=== PATIENT | male | born 1960 | race Caucasian/White ===

== ENCOUNTER 2018-01-30 18:59 | Inpatient (IN) | payer MEDICAID ==
[~2018-01-30] VITALS: Ht 167.6 cm; Wt 57.6 kg
[2018-01-30 19:05] VITALS: BP 87/46
[2018-01-30] MEDS ORDERED: INSULIN REGULAR, HUMAN 100 UNIT/ML VIAL IVP ONE (19:20)
[2018-01-30] MEDS ORDERED: NACL 0.9% 2,000 ML IV ONE (19:20)
[2018-01-30] MEDS ORDERED: ONDANSETRON 4 MG/2 ML VIAL IVP ONE (19:50)
[2018-01-30] MEDS ORDERED: ONDANSETRON 4 MG/2 ML VIAL ONE (19:55)
[2018-01-30] MEDS ORDERED: NACL 0.9% 1,000 ML IV ONE ×2 (20:00→21:46)
[2018-01-30] MEDS ORDERED: POTASSIUM CHL 20 MEQ/NACL 0.9% 1,000 ML IV ONE (20:05)
[2018-01-30 20:15] LABS: BARBITURATE, URINE NEG. ng/ml (NEG <=200); BENZODIAZEPINE, URINE NEG. ng/mL (NEG <=200); CANNABINOID, URINE NEG. ng/mL (NEG <=50); COCAINE, URINE NEG. ng/mL (NEG <=300); OPIATE, URINE NEG. ng/mL (NEG <=2000); PHENCYCLIDINE SCREEN,URINE NEG. ng/mL (NEG <=25)
[2018-01-30 20:17] LABS: APPEARANCE,URINE SL CLOUDY (CLEAR); BILIRUBIN,URINE 1+ (NEGATIVE); BLOOD, URINE 3+ (NEGATIVE); COLOR,URINE YELLOW (YELLOW); LEUKOCYTE ESTERASE ,URINE NEGATIVE (NEGATIVE); NITRITE, URINE NEGATIVE (NEGATIVE); PH,URINE 5.5 (5.0-9.0); UGLUCOSE 3+ (NEGATIVE)
[2018-01-30 20:22] LABS: RBC,URINE 3-10 (FEW) /HPF (0-5); WBC,URINE NONE SEEN /HPF (0-5)
[2018-01-30 20:25] LABS: BASOPHILS % (AUTO) 0.1 % (0.0-2.0); HEMATOCRIT 51.1 % (36-52); HEMOGLOBIN 15.4 g/dL (12.0-18.0); LYMPHOCYTES # (AUTO) 1.1 K/uL (2.0-11.5); LYMPHOCYTES % (AUTO) 11.4 % (20.5-51.1); MEAN CORPUSCULAR HEMOGLOBIN 30 pg (27-31); MEAN CORPUSCULAR HGB CONC 30 g/dL (33-37); MEAN CORPUSCULAR VOLUME 100.1 fL (80-94); MONOCYTES # (AUTO) 0.1 K/uL (0.8-1.0); MONOCYTES % (AUTO) 1.1 % (1.7-9.3); NEUTROPHILS # (AUTO) 8.2 K/uL (1.8-7.7); NEUTROPHILS % (AUTO) 87.4 % (42.2-75.2); PLATELET COUNT (AUTO) 165 K/uL (140-450); RED CELL DISTRIBUTION WIDTH 15.1 % (11.6-13.7); WHITE BLOOD COUNT (AUTO) 9.3 K/uL (4.8-10.8)
[2018-01-30] MEDS ORDERED: SODIUM BICARBONATE 8.4% PFS 50 MEQ/50 ML SYR IVP ONE (20:25)
[2018-01-30 20:59] LABS: POTASSIUM 3.7 mmol/L (3.5-5.1)
[2018-01-30 21:00] LABS: ACETAMINOPHEN 3.4 ug/ml (10-30); ALBUMIN 2.7 g/dL (3.4-5.0); ASPARTATE AMINOTRANSFERASE 14 U/L (15-37); CHLORIDE 116 mmol/L (98-107); GFR ARICAN-AMERICAN 28 mL/min (>90); SALICYLATE 4.9 mg/dL (2.8-20.0); SODIUM SERUM 167 mmol/L (136-145); TOTAL BILIRUBIN 0.5 mg/dL (0.0-1.0)
[2018-01-30] MEDS ORDERED: POTASSIUM CHLORIDE 20% 40 MEQ/15 ML UDC PO ONE (21:00)
[2018-01-30 21:04] LABS: ANION GAP 45.9 (8-16); CARBON DIOXIDE 8.8 mmol/L (21-32); UREA NITROGEN, BLOOD 76 mg/dL (7-18)
[2018-01-30 21:06] LABS: PROTHROMBIN TIME 10.8 secs (10.8-13.4)
[2018-01-30] MEDS ORDERED: DOCUSATE SODIUM 100 MG GELCAP PO PRN (21:30)
[2018-01-30] MEDS ORDERED: HYDROcodone/APAP 7.5/325 MG 1 TAB PO PRN (21:30)
[2018-01-30] MEDS ORDERED: ACETAMINOPHEN 325 MG TAB PO PRN (21:30)
[2018-01-30] MEDS ORDERED: ONDANSETRON 4 MG/2 ML VIAL IM/IVP PRN (21:30)
[2018-01-30] MEDS ORDERED: DEXT 5% / NACL 0.45% 1,000 ML IV SCH (21:46)
[2018-01-30] MEDS ORDERED: INSULIN REGULAR, HUMAN 100 UNIT in NACL 0.9% 100 ML IV SCH ×2 (21:50)
[2018-01-30] MEDS ORDERED: DEXTROSE 50% 50 ML SYR IVP PRN (21:50)
[2018-01-30] MEDS ORDERED: INSULIN REGULAR, HUMAN 100 UNIT/ML VIAL IVP SCH (22:00)
[2018-01-30] MEDS: BLOOD GLUCOSE MONITORING 1 DEV DEV FS SCH ×2 (22:00→23:21)
[2018-01-30 22:09] LABS: CHOL/HDL RATIO 4.5 (1-4.5); FREE T4 (FREE THYROXINE) 0.85 ng/dL (0.76-1.46); MAGNESIUM 3.3 mg/dL (1.8-2.4); THYROID STIMULATING HORMONE 3.91 uIU/mL (0.34-3.74)
[2018-01-30] MEDS: NACL 0.45% 1,000 ML IV SCH (22:15)
[2018-01-30] MEDS ORDERED: LORazepam 2 MG/ML VIAL IVP SCH (22:30)
[2018-01-30] MEDS ORDERED: HYDROmorphone 1 MG/ML AMP IVP SCH (22:30)
[2018-01-30] MEDS: NACL 0.9% 1,000 ML IV SCH (22:39)
[2018-01-30] MEDS ORDERED: cefTRIAXone 1,000 MG VIAL ONE (22:42)
[2018-01-30] MEDS ORDERED: PNEUMOCOCCAL VACCINE 23 MCG/0.5 ML VIAL IMVAC SCH (23:35)
[2018-01-31] VITALS (12 sets, daily range): BP systolic 93–146; BP diastolic 57–87
[2018-01-31] MEDS ORDERED: KCL 20 MEQ/WATER INJ PREMIX 100 ML IV ONE
[2018-01-31] MEDS: BLOOD GLUCOSE MONITORING 1 DEV DEV FS SCH ×17 (01:01→20:00)
[2018-01-31] MEDS ORDERED: MECLIZINE 25 MG TAB PO PRN (01:05)
[2018-01-31 01:16] LABS: MAGNESIUM 2.6 mg/dL (1.8-2.4); PHOSPHORUS 2.3 mg/dL (2.5-4.9)
[2018-01-31 01:32] LABS: ANION GAP 25.3 (8-16); CARBON DIOXIDE 19.5 mmol/L (21-32); CREATININE 2.3 mg/dL (0.7-1.3)
[2018-01-31 01:57] LABS: POTASSIUM 2.8 mmol/L (3.5-5.1)
[2018-01-31] MEDS: NACL 0.9% 1,000 ML IV SCH (02:00)
[2018-01-31] MEDS ORDERED: ALBUTEROL SULFATE/IPRATROPIU 3 ML SOL IH PRN (02:30)
[2018-01-31] MEDS: NACL 0.45% 1,000 ML IV SCH (03:15)
[2018-01-31 04:38] LABS: ANION GAP 12.3 (8-16); CARBON DIOXIDE 27.6 mmol/L (21-32); CREATININE 2.1 mg/dL (0.7-1.3); MAGNESIUM 2.4 mg/dL (1.8-2.4); PHOSPHORUS 2.1 mg/dL (2.5-4.9); POTASSIUM 3.9 mmol/L (3.5-5.1)
[2018-01-31] MEDS ORDERED: PIPERACILLIN/TAZOBACTAM 2.25 GM VIAL IV ONE (05:24)
[2018-01-31] MEDS: PIPER/TAZO 2.25GM/D5W PREMIX 50 ML IV SCH ×3 (05:26→21:44)
[2018-01-31 05:36] LABS: BASOPHILS % (AUTO) 0.1 % (0.0-2.0); EOSINOPHILS % (AUTO) 0.1 % (0.0-4.0); HEMATOCRIT 46.9 % (36-52); HEMOGLOBIN 15.3 g/dL (12.0-18.0); LYMPHOCYTES # (AUTO) 0.7 K/uL (2.0-11.5); LYMPHOCYTES % (AUTO) 8.1 % (20.5-51.1); MEAN CORPUSCULAR HEMOGLOBIN 30 pg (27-31); MEAN CORPUSCULAR HGB CONC 33 g/dL (33-37); MEAN CORPUSCULAR VOLUME 92.7 fL (80-94); MONOCYTES # (AUTO) 0.3 K/uL (0.8-1.0); MONOCYTES % (AUTO) 3.4 % (1.7-9.3); NEUTROPHILS % (AUTO) 88.3 % (42.2-75.2); PLATELET COUNT (AUTO) 150 K/uL (140-450); RED BLOOD CELL COUNT(AUTO) 5.06 MIL/uL (4.20-6.10); RED CELL DISTRIBUTION WIDTH 13.5 % (11.6-13.7)
[2018-01-31] MEDS ORDERED: DEXTROSE 5% 1,000 ML IV SCH (06:55)
[2018-01-31] MEDS: ALBUTEROL SULFATE/IPRATROPIU 3 ML SOL IH SCH ×3 (07:03→19:36)
[2018-01-31] MEDS ORDERED: HYDROcodone/APAP 7.5/325 MG 1 TAB PO PRN (07:10)
[2018-01-31 09:32] LABS: POTASSIUM 3.9 mmol/L (3.5-5.1)
[2018-01-31 09:35] LABS: ANION GAP 12.9 (8-16)
[2018-01-31 10:02] LABS: MAGNESIUM 2.3 mg/dL (1.8-2.4); PHOSPHORUS 2.3 mg/dL (2.5-4.9)
[2018-01-31 12:58] LABS: ANION GAP 11.3 (8-16); CARBON DIOXIDE 29.7 mmol/L (21-32); CREATININE 2.2 mg/dL (0.7-1.3)
[2018-01-31] MEDS ORDERED: POTASSIUM CHLORIDE 20% 40 MEQ/15 ML UDC GT SCH (13:15)
[2018-01-31 13:19] LABS: MAGNESIUM 2.3 mg/dL (1.8-2.4)
[2018-01-31] MEDS: SODIUM PHOS / POTASSIUM PHOS 1 PKT PDR PO SCH (14:03)
[2018-01-31] MEDS: DEXT 5% / NACL 0.45% 1,000 ML IV SCH (14:08)
[2018-01-31 15:11] LABS: ANION GAP 10.3 (8-16); CARBON DIOXIDE 29.6 mmol/L (21-32); CREATININE 2.2 mg/dL (0.7-1.3); POTASSIUM 3.9 mmol/L (3.5-5.1)
[2018-01-31 16:13] LABS: MAGNESIUM 2.3 mg/dL (1.8-2.4); PHOSPHORUS 2.4 mg/dL (2.5-4.9)
[2018-01-31] MEDS ORDERED: INSULIN LANTUS 100 UNITS/ML 10 ML VIAL SUBQ SCH (16:18)
[2018-01-31 18:09] LABS: ANION GAP 11.4 (8-16); CARBON DIOXIDE 27.6 mmol/L (21-32); CREATININE 2.2 mg/dL (0.7-1.3)
[2018-01-31] MEDS ORDERED: DEXTROSE 50% 50 ML SYR IVP PRN (20:40)
[2018-01-31] MEDS: INSULIN LISPRO SLIDING SCALE 100 UNITS/ML VIAL SUBQ PRN (21:30)
[2018-01-31] MEDS: ATORVASTATIN 20 MG TAB PO SCH (21:45)
[2018-02-01] VITALS (13 sets, daily range): BP systolic 87–143; BP diastolic 49–81
[2018-02-01] MEDS: BLOOD GLUCOSE MONITORING 1 DEV DEV FS SCH ×6 (00:38→20:00)
[2018-02-01 00:39] LABS: ANION GAP 11.2 (8-16); CARBON DIOXIDE 27.9 mmol/L (21-32); POTASSIUM 3.1 mmol/L (3.5-5.1)
[2018-02-01] MEDS: DEXT 5% / NACL 0.45% 1,000 ML IV SCH (01:00)
[2018-02-01] MEDS ORDERED: KCL 20 MEQ/WATER INJ PREMIX 200 ML IV ONE (01:15)
[2018-02-01] MEDS: ALBUTEROL SULFATE/IPRATROPIU 3 ML SOL IH SCH ×4 (01:39→19:19)
[2018-02-01] MEDS ORDERED: LORazepam 2 MG/ML VIAL IM/IVP ONE (03:00)
[2018-02-01] MEDS: PIPER/TAZO 2.25GM/D5W PREMIX 50 ML IV SCH ×3 (04:58→20:57)
[2018-02-01 06:20] LABS: BASOPHILS % (AUTO) 0.1 % (0.0-2.0); EOSINOPHILS % (AUTO) 0.2 % (0.0-4.0); HEMATOCRIT 41.2 % (36-52); HEMOGLOBIN 13.4 g/dL (12.0-18.0); LYMPHOCYTES # (AUTO) 0.8 K/uL (2.0-11.5); LYMPHOCYTES % (AUTO) 8.8 % (20.5-51.1); MEAN CORPUSCULAR HEMOGLOBIN 30 pg (27-31); MEAN CORPUSCULAR HGB CONC 33 g/dL (33-37); MEAN CORPUSCULAR VOLUME 92.8 fL (80-94); MONOCYTES # (AUTO) 0.2 K/uL (0.8-1.0); MONOCYTES % (AUTO) 1.8 % (1.7-9.3); NEUTROPHILS # (AUTO) 8.4 K/uL (1.8-7.7); NEUTROPHILS % (AUTO) 89.1 % (42.2-75.2); RED BLOOD CELL COUNT(AUTO) 4.43 MIL/uL (4.20-6.10); RED CELL DISTRIBUTION WIDTH 13.6 % (11.6-13.7); WHITE BLOOD COUNT (AUTO) 9.4 K/uL (4.8-10.8)
[2018-02-01 07:08] LABS: PHOSPHORUS 2.6 mg/dL (2.5-4.9)
[2018-02-01 07:50] LABS: PLATELET COUNT (AUTO) 85 K/uL (140-450)
[2018-02-01] MEDS ORDERED: metFORMIN 500 MG TAB PO SCH (08:00)
[2018-02-01] MEDS: INSULIN LISPRO SLIDING SCALE 100 UNITS/ML VIAL SUBQ PRN ×2 (08:12→12:03)
[2018-02-01 08:18] LABS: T3 UPTAKE 26 % (24-39); T4 (THYROXINE) 4.3 ug/dL (4.5-12.0)
[2018-02-01 09:19] LABS: ANION GAP 13.4 (8-16); CARBON DIOXIDE 27.3 mmol/L (21-32); CREATININE 1.8 mg/dL (0.7-1.3); POTASSIUM 3.7 mmol/L (3.5-5.1)
[2018-02-01] MEDS: SODIUM PHOS / POTASSIUM PHOS 1 PKT PDR PO SCH ×3 (09:21→17:13)
[2018-02-01] MEDS: INSULIN LANTUS 100 UNITS/ML 10 ML VIAL SUBQ SCH (09:22)
[2018-02-01] MEDS: DEXTROSE 5% 1,000 ML IV SCH (10:03)
[2018-02-01] MEDS ORDERED: LORazepam 2 MG/ML VIAL IM/IVP PRN (11:25)
[2018-02-01 12:41] LABS: CARBON DIOXIDE 28.2 mmol/L (21-32); POTASSIUM 3.1 mmol/L (3.5-5.1)
[2018-02-01 12:42] LABS: CREATININE 1.7 mg/dL (0.7-1.3)
[2018-02-01 12:43] LABS: ANION GAP 11.9 (8-16)
[2018-02-01] MEDS ORDERED: KCL 20 MEQ/WATER INJ PREMIX 200 ML IV SCH (14:00)
[2018-02-01 17:05] LABS: ANION GAP 15.2 (8-16); CARBON DIOXIDE 25.8 mmol/L (21-32); CREATININE 1.4 mg/dL (0.7-1.3)
[2018-02-01 18:51] LABS: ANION GAP 11.5 (8-16); CARBON DIOXIDE 28.7 mmol/L (21-32); CREATININE 1.3 mg/dL (0.7-1.3); POTASSIUM 3.2 mmol/L (3.5-5.1)
[2018-02-01] MEDS ORDERED: guaiFENesin DM 200/20 MG-10 ML 10 ML UDC PO PRN (20:35)
[2018-02-01] MEDS ORDERED: BENZOCAINE/MENTHOL 1 LOZ MM PRN (20:35)
[2018-02-01] MEDS: ATORVASTATIN 20 MG TAB PO SCH (20:58)
[2018-02-02] VITALS (7 sets, daily range): BP systolic 86–95; BP diastolic 44–61
[2018-02-02] MEDS: BLOOD GLUCOSE MONITORING 1 DEV DEV FS SCH ×6 (00:21→20:41)
[2018-02-02] MEDS: INSULIN LISPRO SLIDING SCALE 100 UNITS/ML VIAL SUBQ PRN ×5 (00:23→20:47)
[2018-02-02] MEDS: ALBUTEROL SULFATE/IPRATROPIU 3 ML SOL IH SCH ×4 (01:34→19:34)
[2018-02-02] MEDS: DEXTROSE 5% 1,000 ML IV SCH ×2 (05:17→20:41)
[2018-02-02] MEDS: PIPER/TAZO 2.25GM/D5W PREMIX 50 ML IV SCH ×3 (05:18→20:43)
[2018-02-02 07:16] LABS: BASOPHILS % (AUTO) 0.2 % (0.0-2.0); EOSINOPHILS # (AUTO) 0.1 K/uL (0-0.4); HEMOGLOBIN 12.7 g/dL (12.0-18.0); LYMPHOCYTES # (AUTO) 1.3 K/uL (2.0-11.5); LYMPHOCYTES % (AUTO) 13.7 % (20.5-51.1); MEAN CORPUSCULAR HEMOGLOBIN 31 pg (27-31); MEAN CORPUSCULAR HGB CONC 34 g/dL (33-37); MEAN CORPUSCULAR VOLUME 91.6 fL (80-94); MONOCYTES # (AUTO) 0.1 K/uL (0.8-1.0); MONOCYTES % (AUTO) 1.6 % (1.7-9.3); NEUTROPHILS # (AUTO) 7.8 K/uL (1.8-7.7); NEUTROPHILS % (AUTO) 83.5 % (42.2-75.2); PLATELET COUNT (AUTO) 66 K/uL (140-450); RED BLOOD CELL COUNT(AUTO) 4.15 MIL/uL (4.20-6.10); RED CELL DISTRIBUTION WIDTH 13.4 % (11.6-13.7); WHITE BLOOD COUNT (AUTO) 9.3 K/uL (4.8-10.8)
[2018-02-02] MEDS ORDERED: KCL 20 MEQ/WATER INJ PREMIX 200 ML IV SCH (08:00)
[2018-02-02] MEDS: SODIUM PHOS / POTASSIUM PHOS 1 PKT PDR PO SCH ×3 (08:33→16:58)
[2018-02-02] MEDS: INSULIN LANTUS 100 UNITS/ML 10 ML VIAL SUBQ SCH (08:39)
[2018-02-02 08:46] LABS: ANION GAP 10.2 (8-16); CARBON DIOXIDE 32.2 mmol/L (21-32); CREATININE 0.9 mg/dL (0.7-1.3); MAGNESIUM 1.5 mg/dL (1.8-2.4); PHOSPHORUS 2.5 mg/dL (2.5-4.9); POTASSIUM 3.4 mmol/L (3.5-5.1)
[2018-02-02] MEDS ORDERED: MAG SULF 2000 MG/WATER PREMIX 100 ML IV ONE (10:15)
[2018-02-02] MEDS ORDERED: KCL 20 MEQ/WATER INJ PREMIX 200 ML IV ONE (10:15)
[2018-02-02] MEDS: MAGNESIUM SULFATE 1GM in DEXTROSE 5% 100 ML PREMIX IV SCH ×2 (13:12→16:57)
[2018-02-02 20:03] LABS: ANION GAP 13.2 (8-16); POTASSIUM 3.2 mmol/L (3.5-5.1)
[2018-02-02] MEDS: ATORVASTATIN 20 MG TAB PO SCH (20:43)
[2018-02-03] VITALS: BP 90/55
[2018-02-03] MEDS: ALBUTEROL SULFATE/IPRATROPIU 3 ML SOL IH SCH ×3 (00:39→13:42)
[2018-02-03 04:00] VITALS: BP 94/58
[2018-02-03] MEDS: PIPER/TAZO 2.25GM/D5W PREMIX 50 ML IV SCH ×2 (05:16→12:20)
[2018-02-03] MEDS: BLOOD GLUCOSE MONITORING 1 DEV DEV FS SCH ×3 (06:03→17:08)
[2018-02-03] MEDS: INSULIN LISPRO SLIDING SCALE 100 UNITS/ML VIAL SUBQ PRN ×3 (06:03→17:32)
[2018-02-03 06:53] LABS: BASOPHILS % (AUTO) 0.4 % (0.0-2.0); EOSINOPHILS # (AUTO) 0.1 K/uL (0-0.4); EOSINOPHILS % (AUTO) 1.1 % (0.0-4.0); HEMOGLOBIN 13.3 g/dL (12.0-18.0); LYMPHOCYTES % (AUTO) 17.8 % (20.5-51.1); MEAN CORPUSCULAR HEMOGLOBIN 30 pg (27-31); MEAN CORPUSCULAR HGB CONC 33 g/dL (33-37); MONOCYTES # (AUTO) 0.3 K/uL (0.8-1.0); MONOCYTES % (AUTO) 4.5 % (1.7-9.3); NEUTROPHILS # (AUTO) 4.3 K/uL (1.8-7.7); NEUTROPHILS % (AUTO) 76.2 % (42.2-75.2); PLATELET COUNT (AUTO) 65 K/uL (140-450); RED BLOOD CELL COUNT(AUTO) 4.39 MIL/uL (4.20-6.10); RED CELL DISTRIBUTION WIDTH 13.2 % (11.6-13.7); WHITE BLOOD COUNT (AUTO) 5.6 K/uL (4.8-10.8)
[2018-02-03 07:16] LABS: ANION GAP 7.3 (8-16); CARBON DIOXIDE 33.7 mmol/L (21-32); CREATININE 0.9 mg/dL (0.7-1.3)
[2018-02-03 07:19] LABS: MAGNESIUM 2.1 mg/dL (1.8-2.4); PHOSPHORUS 2.5 mg/dL (2.5-4.9)
[2018-02-03 08:01] VITALS: BP 88/58
[2018-02-03] MEDS ORDERED: POTASSIUM CHLORIDE 10 MEQ TABER PO SCH ×2 (09:00)
[2018-02-03] MEDS: INSULIN LANTUS 100 UNITS/ML 10 ML VIAL SUBQ SCH (09:04)
[2018-02-03] MEDS: DEXTROSE 5% 1,000 ML IV SCH (11:55)
[2018-02-03 12:00] VITALS: BP 101/59
[2018-02-03] MEDS ORDERED: METF-988 PO (12:23)
[2018-02-03] MEDS ORDERED: LANTUS SUBQ (12:23)
[2018-02-03] MEDS ORDERED: HUMSLIDE SUBQ (12:23)
[2018-02-03] MEDS ORDERED: POTASSIUM CHLORIDE 40 MEQ, LIDOCAINE MPF 1% - 5 mL VIAL 25 MG in NACL 0.9% 250 ML IV ONE (13:30)
[2018-02-03] MEDS ORDERED: POTASSIUM PHOSPHATE 30 MM in NACL 0.9% 500 ML IV SCH (13:30)
[2018-02-03 16:00] VITALS: BP 101/58
== END 2018-02-03 19:10 | disposition home or self-care (01) | DRG 720 ==
LOC: MED 18:59 → MIC 21:29 → MTU 02-01 13:20
PROVIDERS: ADMIT General Practice; ATTEND General Practice
PROC: 3E0234Z Introduction of Serum, Toxoid and Vaccine into Muscle, Percutaneous Approach (ICD-10-PCS; 2018-01-30)
PROC: 02HV33Z Insertion of Infusion Device into Superior Vena Cava, Percutaneous Approach (ICD-10-PCS; principal; 2018-01-31)
PROC: B548ZZA Ultrasonography of Superior Vena Cava, Guidance (ICD-10-PCS; 2018-01-31)
DX: A41.9 Sepsis, unspecified organism (principal); N17.0 Acute kidney failure with tubular necrosis; J96.21 Acute and chronic respiratory failure with hypoxia; J69.0 Pneumonitis due to inhalation of food and vomit; G93.41 Metabolic encephalopathy; E11.10 Type 2 diabetes mellitus with ketoacidosis without coma; K85.90 Acute pancreatitis without necrosis or infection, unspecified; E87.2 Acidosis; E87.0 Hyperosmolality and hypernatremia; R65.20 Severe sepsis without septic shock; N39.0 Urinary tract infection, site not specified; E87.6 Hypokalemia; E86.0 Dehydration; E78.1 Pure hyperglyceridemia; J32.0 Chronic maxillary sinusitis; J32.2 Chronic ethmoidal sinusitis; E87.8 Other disorders of electrolyte and fluid balance, not elsewhere classified; E78.2 Mixed hyperlipidemia; E83.41 Hypermagnesemia; E83.39 Other disorders of phosphorus metabolism; E02 Subclinical iodine-deficiency hypothyroidism; I25.10 Atherosclerotic heart disease of native coronary artery without angina pectoris; N20.0 Calculus of kidney; R63.6 Underweight; Z86.73 Personal history of transient ischemic attack (TIA), and cerebral infarction without residual deficits; I25.2 Old myocardial infarction; Z91.14 Patient's other noncompliance with medication regimen; Z68.1 Body mass index [BMI] 19.9 or less, adult; Z23 Encounter for immunization; Z79.84 Long term (current) use of oral hypoglycemic drugs
CPT/HCPCS: 36415; 36600; 70450; 71045; 71250; 80048; 80053; 80305; 81001; 82009; 82140; 82150; 82550; 82803; 82948; 83036; 83605; 83690; 83735; 83874; 83880; 83930; 84100; 84436; 84439; 84443; 84479; 84484; 84550; 85025; 85610; 85730; 86886; 86900; 86901; 87040; 87081; 87086; 87804; 90732; 93005; 94640; 96361; 96374; 96375; 97110; 97530; 99291; 99292; G0480; G0482; J0696; J1170; J1642; J1815; J2060; J2405; J2543; J3480; J7030; J7060; J7620; Q0092